=== PATIENT | female | born 1945 | race African-American/Black ===

== ENCOUNTER 2017-06-15 21:27 | Emergency (ER) | payer MEDICARE, OTHER ==
[~2017-06-15] VITALS: Ht 167.6 cm; Wt 72.0 kg
[2017-06-15 21:29] VITALS: BP 176/79; PULSE 64; RESP 16; TEMP 98.4; O2SAT 97
[2017-06-15] MEDS ORDERED: SODIUM CHLOR 0.9% 1000 ML INJ 1,000 ML IV SCH (22:07)
[2017-06-15] MEDS ORDERED: SODIUM CHLORIDE 0.9% FLUSH 10 ML FLUSH IV FLUSH PRN (22:15)
[2017-06-15] MEDS ORDERED: methylPREDNISolone SOD SUCC 125 MG/2 ML VIAL IV PUSH ONE (22:15)
[2017-06-15] MEDS ORDERED: diphenhydrAMINE HCL 50 MG/ML VIAL IVP ONE (22:15)
[2017-06-15] MEDS ORDERED: EPINEPHrine HCL (1:1000) 1 MG/ML VIAL IM ONE (22:15)
[2017-06-15 22:21] LABS: AUTOMATED NEUTROPHIL # 5.7 TH/MM3 (1.8-7.7); BASOPHIL # 0.1 TH/MM3 (0-0.2); BASOPHIL % 0.8 % (0.0-2.0); EOSINOPHIL # 0.2 TH/MM3 (0-0.4); EOSINOPHIL % 1.7 % (0.0-4.0); HEMATOCRIT 41.4 % (35.0-46.0); HEMO FLAGS DIFF FINAL; LYMPH % 27.7 % (9.0-44.0); LYMPHOCYTE # 2.5 TH/MM3 (1.0-4.8); MEAN CELL VOLUME 92.7 FL (80.0-100.0); MEAN CORPUSCULAR HEMOGLOBIN 30.5 PG (27.0-34.0); MEAN CORPUSCULAR HGB CONC 32.9 % (32.0-36.0); MONO % 5.8 % (0.0-8.0); PLATELET COUNT 187 TH/MM3 (150-450); RED BLOOD COUNT 4.46 MIL/MM3 (4.00-5.30); RED CELL DISTRIBUTION WIDTH 13.3 % (11.6-17.2); WHITE BLOOD COUNT 8.9 TH/MM3 (4.0-11.0)
--- NOTE | 2017-06-15 22:22 | PD ---
HPI Chief Complaint: Allergic/Adverse Reaction Time Seen by Provider: 22:07 Travel History International Travel<30 days: No Contact w/Intl Traveler<30days: No Traveled to known affect area: No History of Present Illness HPI 71-year-old female presents to the ED for evaluation of 3 week history of intermittent facial swelling. She states that she's noticed this off-and-on has been taking Zyrtec which has helped to improve her symptoms. However today she noticed worsening facial swelling, especially on the right side with some changes in her voice and a "full throat" sensation. She took Zyrtec with no improvement of symptoms which caused her to seek treatment. She denies wheezing or shortness of breath. She denies difficulty swallowing her own secretions. She denies any known new exposures. She denies any medication changes. [facility] Social History Tobacco Use: No Allergies-Medications (Allergen,Severity, Reaction): Coded Allergies: No Known Allergies (Unverified , 06/15/17) Reported Meds & Prescriptions Reported Meds & Active Scripts Active No Active Prescriptions or Reported Medications Review of Systems Except as stated in HPI: all other systems reviewed are Neg Physical Exam Narrative GENERAL: Well-nourished, well-developed black female in no acute distress. SKIN: Warm and dry. HEAD: Normocephalic. Atraumatic. EYES: No scleral icterus. No injection or drainage. PERRLA. EOMI. ENT: Pearly escobar tympanic membranes bilaterally. Nasal mucosa is moist. Oropharynx without erythema or exudate. Uvula is midline, mildly edematous. For the mouth is soft. Airway patent. NECK: Supple, trachea midline. No JVD or lymphadenopathy. CARDIOVASCULAR: Regular rate and rhythm without murmurs, gallops, or rubs. RESPIRATORY: Breath sounds clear and equal bilaterally. No wheezes. No retractions. No accessory muscle use. GASTROINTESTINAL: Abdomen soft, non-tender, nondistended. MUSCULOSKELETAL: No cyanosis, or edema. BACK: Nontender without obvious deformity. No CVA tenderness. Data Data Last Documented VS Vital Signs Date Time Temp Pulse Resp B/P (MAP) Pulse Ox O2 Delivery O2 Flow Rate FiO2 06/15/17 21:29 98.4 64 16 176/79 (111) 97 Room Air Orders Orders Basic Metabolic Panel (Bmp) (06/15/17 22:07) Complete Blood Count With Diff (06/15/17 22:07) Ecg Monitoring (06/15/17 22:07) Iv Access Insert/Monitor (06/15/17 22:07) Oximetry (06/15/17 22:07) Diphenhydramine Inj (Benadryl Inj) (06/15/17 22:15) Methylprednisolone So Succ Inj (Solumedr (06/15/17 22:15) Sodium Chlor 0.9% 1000 Ml Inj (Ns 1000 M (06/15/17 22:07) Sodium Chloride 0.9% Flush (Ns Flush) (06/15/17 22:15) Epinephrine (1:1000) Inj (Adrenalin (1:1 (06/15/17 22:15) Labs Laboratory Tests Test 06/15/17 22:15 White Blood Count 8.9 TH/MM3 Red Blood Count 4.46 MIL/MM3 Hemoglobin 13.6 GM/DL Hematocrit 41.4 % Mean Corpuscular Volume 92.7 FL Mean Corpuscular Hemoglobin 30.5 PG Mean Corpuscular Hemoglobin Concent 32.9 % Red Cell Distribution Width 13.3 % Platelet Count 187 TH/MM3 Mean Platelet Volume 9.9 FL Neutrophils (%) (Auto) 64.0 % Lymphocytes (%) (Auto) 27.7 % Monocytes (%) (Auto) 5.8 % Eosinophils (%) (Auto) 1.7 % Basophils (%) (Auto) 0.8 % Neutrophils # (Auto) 5.7 TH/MM3 Lymphocytes # (Auto) 2.5 TH/MM3 Monocytes # (Auto) 0.5 TH/MM3 Eosinophils # (Auto) 0.2 TH/MM3 Basophils # (Auto) 0.1 TH/MM3 CBC Comment DIFF FINAL Differential Comment Blood Urea Nitrogen 16 MG/DL Creatinine 0.64 MG/DL Random Glucose 98 MG/DL Calcium Level 10.0 MG/DL Sodium Level 137 MEQ/L Potassium Level 4.0 MEQ/L Chloride Level 104 MEQ/L Carbon Dioxide Level 26.8 MEQ/L Anion Gap 6 MEQ/L Estimat Glomerular Filtration Rate 110 ML/MIN MDM Medical Decision Making Medical Screen Exam Complete: Yes Emergency Medical Condition: Yes Differential Diagnosis Allergic reaction versus angioedema versus airway compromise versus other Narrative Course 71-year-old female presents to the ED for evaluation of 3 week history of intermittent facial swelling. Today she noticed worsening facial swelling, especially on the right side with some changes in her voice and a "full throat" sensation. . She denies wheezing, SOB, difficulty swallowing her own secretions , known new exposures, medication changes. She took Zyrtec with no improvement of symptoms which caused her to seek treatment. Respiratory rate 16, O2 saturation 96% on presentation. Physical exam reveals a nontoxic-appearing black female in no acute distress. There is facial swelling, notably on the right side of face, mild edema of the uvula. The floor the mouth is soft. The airway is patent. No tachypnea, retractions. Chest clear to auscultation bilaterally. IV was established. The patient was administered 125 mg of Solu- Medrol, 50 mg of Benadryl IV as well as 0.3 mg epinephrine IM and 1 L normal saline. We'll monitor the patient in the ED and recheck her intermittently for signs of improvement or worsening. Disposition per Dr. Gaytan. Scripts No Active Prescriptions or Reported Meds Amalia Sierra Jun 15, 2017 22:22
[2017-06-15 22:39] LABS: BICARBONATE 26.8 MEQ/L (21.0-32.0)
[2017-06-15] MEDS ORDERED: LIOT5TAB3 PO (23:02)
[2017-06-15] MEDS ORDERED: ESTR.3 PO (23:02)
[2017-06-15] MEDS ORDERED: LATA0.002 EACH EYE (23:02)
[2017-06-15] MEDS ORDERED: TIMO0.5S30 EACH EYE (23:02)
[2017-06-15] MEDS ORDERED: LEVO.075 PO (23:02)
--- NOTE | 2017-06-15 23:13 | PD ---
Physical Exam Narrative General: The patient is a well-developed well-nourished female in no acute distress. Head and Neck exam: Head is normocephalic atraumatic. Eyes: EOMI, pupils are equal round and reactive to light. Nose: Midline septum with pink mucous membranes Mouth: Dentition unremarkable. Moist mucus membranes. Posterior oropharynx is not erythematous. No tonsillar hypertrophy. Uvula midline. Airway patent. No evidence of tongue or throat swelling at this time. Neck: No palpable lymphadenopathy. No nuchal rigidity. No thyromegaly. Cardiovascular: Regular rate and rhythm without murmurs, gallops, or rubs. Lungs: Clear to auscultation bilaterally. No wheezes, rhonchi, or rales. Abdomen: Soft, without tenderness to palpation in all 4 quadrants of the abdomen. No guarding, rebound, or rigidity. Normal bowel sounds are audible. No tenderness on palpation of McBurney's point. Extremities: No clubbing, cyanosis, or edema. No calf tenderness on palpation. Neurologic Exam: Grossly nonfocal. Skin Exam: No rash noted. Intact skin that is warm and dry. Data Data Last Documented VS Vital Signs Date Time Temp Pulse Resp B/P (MAP) Pulse Ox O2 Delivery O2 Flow Rate FiO2 06/16/17 01:14 06/15/17 23:17 71 06/15/17 21:29 98.4 16 97 Room Air Orders Orders Basic Metabolic Panel (Bmp) (06/15/17 22:07) Complete Blood Count With Diff (06/15/17 22:07) Ecg Monitoring (06/15/17 22:07) Iv Access Insert/Monitor (06/15/17 22:07) Oximetry (06/15/17 22:07) Diphenhydramine Inj (Benadryl Inj) (06/15/17 22:15) Methylprednisolone So Succ Inj (Solumedr (06/15/17 22:15) Sodium Chlor 0.9% 1000 Ml Inj (Ns 1000 M (06/15/17 22:07) Sodium Chloride 0.9% Flush (Ns Flush) (06/15/17 22:15) Epinephrine (1:1000) Inj (Adrenalin (1:1 (06/15/17 22:15) Labs Laboratory Tests Test 06/15/17 22:15 White Blood Count 8.9 TH/MM3 Red Blood Count 4.46 MIL/MM3 Hemoglobin 13.6 GM/DL Hematocrit 41.4 % Mean Corpuscular Volume 92.7 FL Mean Corpuscular Hemoglobin 30.5 PG Mean Corpuscular Hemoglobin Concent 32.9 % Red Cell Distribution Width 13.3 % Platelet Count 187 TH/MM3 Mean Platelet Volume 9.9 FL Neutrophils (%) (Auto) 64.0 % Lymphocytes (%) (Auto) 27.7 % Monocytes (%) (Auto) 5.8 % Eosinophils (%) (Auto) 1.7 % Basophils (%) (Auto) 0.8 % Neutrophils # (Auto) 5.7 TH/MM3 Lymphocytes # (Auto) 2.5 TH/MM3 Monocytes # (Auto) 0.5 TH/MM3 Eosinophils # (Auto) 0.2 TH/MM3 Basophils # (Auto) 0.1 TH/MM3 CBC Comment DIFF FINAL Differential Comment Blood Urea Nitrogen 16 MG/DL Creatinine 0.64 MG/DL Random Glucose 98 MG/DL Calcium Level 10.0 MG/DL Sodium Level 137 MEQ/L Potassium Level 4.0 MEQ/L Chloride Level 104 MEQ/L Carbon Dioxide Level 26.8 MEQ/L Anion Gap 6 MEQ/L Estimat Glomerular Filtration Rate 110 ML/MIN MDM Medical Record Reviewed: Yes Supervised Visit with SAMIR: No Narrative Course During the course of the patients emergency department visit, the patients history, examination, and differential diagnosis were reviewed with the patient. The patient had IV access obtained and blood work sent for analysis. The patient was checked out to me by Amalia, the physician chemical laboratory assistant. Please see her complete history and physical. The patient's case was checked out to me at the conclusion of her shift. The patient reportedly presented with intermittent facial swelling that it been going on for the last few weeks. The patient then developed a scratchy throat which prompted her visit to the emergency department today. The patient was initially provided Solu-Medrol 125 mg IV, Benadryl 50 mg IV, epinephrine 0.3 mg IM, normal saline 1 L IV fluid bolus. The patients laboratory studies were reviewed and remarkable for a CBC that is within normal limits. Basic metabolic profile is unremarkable. The patient on reexamination reports feeling improved. The patient is instructed regarding the importance of following up with an naval architect specialist for additional testing. The patient will be discharged home with a prescription for an EpiPen, Medrol Dosepak taper, Benadryl, and famotidine. The patient is resting comfortably and feels better, is alert and in no distress. The patients results and examination findings were discussed with the patient. The repeat examination is unremarkable and benign. The history, exam, diagnostic testing, and current condition do not suggest any significant pathology to warrant further testing, continued ED treatment, admission, or surgical evaluation at this point. The vital signs have been stable. The patient does not have uncontrollable pain, intractable vomiting, or other significant symptoms. The patient's condition is stable and appropriate for discharge. The patient will pursue further outpatient evaluation with a primary care physician or other designated or consulting physician as indicated in the discharge instructions. The patient expressed understanding and was agreeable with this plan. Diagnosis Primary Impression: Allergic reaction Qualified Codes: T78.40XA - Allergy, unspecified, initial encounter Referrals: Primary Care Physician 2 days Patient Instructions: General Allergic Reaction (ED), General Instructions Med/Other Pt SpecificInfo: Prescription(s) given Scripts Famotidine (Famotidine) 20 Mg Tab 20 MG PO BID, #14 TAB 0 Refills Prov: Marlene Gaytan MD 06/16/17 Diphenhydramine (Diphenhydramine) 25 Mg Cap 25 MG PO Q6HR for Allergies for 3 Days, CAP 0 Refills Prov: Marlene Gaytan MD 06/16/17 Methylprednisolone Dosepak (Medrol Dosepak) 4 Mg Dspk 4 MG PO DIRECTED, #1 DSPK 0 Refills Per Pharmacist direction Prov: Marlene Gaytan MD 06/16/17 Epinephrine Inj (Epipen 2-Jose Inj) 0.3 Mg/0.3 Ml Pfpen 0.3 MG IM ONCE Y for ALLERGIC REACTION, #1 PACK 0 Refills Prov: Marlene Gaytan MD 06/16/17 Disposition: 01 DISCHARGE HOME Condition: Stable Marlene Gaytan MD Jun 15, 2017 23:13
[2017-06-15 23:17] VITALS: BP 195/84; PULSE 71
[2017-06-16] MEDS ORDERED: FAMO20TA2 PO (01:07)
[2017-06-16] MEDS ORDERED: EPIP0.3I IM (01:07)
[2017-06-16] MEDS ORDERED: MEDR4PAK PO (01:07)
[2017-06-16] MEDS ORDERED: DIPH25CA PO (01:07)
== END 2017-06-16 01:34 | disposition home or self-care (01) ==
LOC: NEPE 21:27
DX: T78.40XA Allergy, unspecified, initial encounter (principal); X58.XXXA Exposure to other specified factors, initial encounter
CPT/HCPCS: 80048; 85025; 96361; 96372; 96374; 96375; 99284; J0171; J1200; J2930; J7030